=== PATIENT | female | born 2000 | race Caucasian/White ===

== ENCOUNTER 2018-07-12 20:41 | Emergency (ER) | payer BC, OTHER ==
[~2018-07-12] VITALS: Ht 165.1 cm; Wt 85.0 kg
[2018-07-12] MEDS ORDERED: HYDROCODONE/ACETAMINOPHEN 5/325MG TABLET PO ONE (21:45)
[2018-07-12] MEDS ORDERED: BACITRACIN ZINC OINT UDPKT TOP ONE (21:45)
[2018-07-12] MEDS ORDERED: TETANUS, DIPHTHERIA, PERTUSSIS VAC/PF 0.5ML (>7YR OLD) IM ONE (21:45)
[2018-07-12 22:33] VITALS: BP 132/86
== END 2018-07-12 22:37 | disposition home or self-care (01) ==
LOC: ER 20:41
DX: S00.83XA Contusion of other part of head, initial encounter (principal); R68.84 Jaw pain; V49.09XA Driver injured in collision with other motor vehicles in nontraffic accident, initial encounter; Y93.89 Activity, other specified; Y92.89 Other specified places as the place of occurrence of the external cause; Y99.8 Other external cause status
CPT/HCPCS: 81025; 90471; 90715; 99283